=== PATIENT | male | born 1970 | race African-American/Black ===

== ENCOUNTER 2019-12-14 13:17 | Inpatient (IN) | payer OTHER ==
--- NOTE | 2019-12-14 14:00 | BHS.RME ---
Substance Use & Tx History - Substance Use History Alcohol Substance amount: 4 pints vodka Frequency of use: Daily Substance route: Oral Date of Last Use: 12/13/19 Cocaine-Crack Substance amount: $30 Frequency of use: Daily Substance route: Smoking Date of Last Use: 12/13/19 Nicotine Substance amount: 5 packs Frequency of use: Daily Substance route: Smoking Date of Last Use: 12/14/19 Physical/Psych/Mental Status - Behavior General Behavior: Increased activity (restlessness, agitation) Eye Contact: Normal - Cooperativeness Cooperativeness: Cooperative - Thinking Thought Processes: Tight, Logical, Goal Directed - Physical Health Problems Is patient presently having any pain?: No Does patient presently have any injuries (include location): No Does patient currently have a fever: No Is patient : No CIWA Nausea/Vomitin Muscle Tremors: 4-Moderate,w/Arms Extend Anxiety: 4-Mod. Anxious/Guarded Agitation: 2 Paroxysmal Sweats: 1-Minimal Palms Moist Orientation: 0-Oriented Tacttile Disturbances: 0-None Auditory Disturbances: 0-None Visual Disturbances: 0-None Headache: 1-Very Mild CIWA-Ar Total Score: 15
[2019-12-14 16:46] VITALS: BMI 20.3
--- NOTE | 2019-12-14 18:43 | HP ---
<Genoveva Damon - Last Filed: 12/14/19 18:35> CIWA Score Nausea/Vomitin Muscle Tremors: 4-Moderate,w/Arms Extend Anxiety: 4-Mod. Anxious/Guarded Agitation: 2 Paroxysmal Sweats: 1-Minimal Palms Moist Orientation: 0-Oriented Tacttile Disturbances: 0-None Auditory Disturbances: 0-None Visual Disturbances: 0-None Headache: 1-Very Mild CIWA-Ar Total Score: 15 - Admission Criteria OASAS Guidelines: Admission for Medically Managed Detox: Requires at least one of the followin. CIWA greater than 12 2. Seizures within the past 24 hours 3. Delirium tremens within the past 24 hours 4. Hallucinations within the past 24 hours 5. Acute intervention needed for co occurring medical disorder 6. Acute intervention needed for co occurring psychiatric disorder 7. Severe withdrawal that cannot be handled at a lower level of care (continued vomiting, continued diarrhea, abnormal vital signs) requiring intravenous medication and/or fluids 8. Admitting History and Physical - Admission Chief Complaint: "I want detox from alcohol and crack" History of Present Illness: CC: "I want detox from alcohol and crack" HPI: Deejay is a 49 year old with PMH hypertension and schizophrenia, who presents for detox from alcohol and crack. This is his first time in a detox program. Substance Use History Alcohol Substance amount: 4 pints vodka Frequency of use: Daily Substance route: Oral Date of Last Use: 12/13/19 Cocaine-Crack Substance amount: $30 Frequency of use: Daily Substance route: Smoking Date of Last Use: 12/13/19 Nicotine Substance amount: 5 packs Frequency of use: Daily Substance route: Smoking Date of Last Use: 12/14/19 PMH: Hypertension PSH: None Psych: Schizophrenia (Haldol injection once a month, states he received the shot 12/10/19. Social: Homeless Legal: None History Source: Patient Limitations to Obtaining History: No Limitations - Smoking History Smoking history: Current every day smoker - Alcohol/Substance Use Hx Alcohol Use: Yes - Social History Usual Living Arrangement: Yes: Other (homeless) Admission ROS [facility] - HPI Chief Complaint: "I want detox from alcohol and crack" Exam Limitations: No Limitations - Ebola screening Have you traveled outside of the country in the last 21 days: No Have you had contact with anyone from an Ebola affected area: No Have you been sick,other than usual withdrawal symptoms: No Do you have a fever: No - Review of Systems Constitutional: No Symptoms Reported, Unintentional Wgt. Loss EENT: denies: Eye Pain, Ear Pain, Nose Congestion, Dental Problems Respiratory: denies: Cough, Shortness of Breath, Wheezing Cardiac: denies: Chest Pain, Syncope GI: denies: Constipated, Diarrhea, Nausea, Vomiting : reports: No Symptoms Reported Musculoskeletal: denies: Muscle Pain, Muscle Weakness Integumentary: denies: Bruising, Rash Neuro: reports: Unsteady Gait. denies: Headache, Numbness, Tingling Hematology: denies: Blood Clots Psychiatric: reports: Agitated, Anxious Patient History - Smoking Cessation Smoking history: Current every day smoker Initiated information on smoking cessation: Yes 'Breaking Loose' booklet given: 12/14/19 - Substances abused Alcohol Substance route: Oral Frequency: Daily Admission Physical Exam [facility] - Vital Signs Vital Signs: Vital Signs - 24 hr 12/14/19 16:44 Temperature 98.7 F Pulse Rate 83 Respiratory 12 Rate Blood Pressure 125/83 - Physical General Appearance: Yes: Thin, Irritable HEENTM: Yes: Hearing grossly Normal Respiratory: Yes: Within Normal Limits, Lungs Clear, Normal Breath Sounds. No: No Respiratory Distress, No Accessory Muscle Use Breast: Yes: Breast Exam Deferred Cardiology: Yes: Regular Rhythm, Regular Rate, S1, S2 Abdominal: Yes: Non Tender, Flat, Soft Genitourinary: Yes: Within Normal Limits Back: Yes: Normal Inspection Extremities: Yes: Normal Inspection, Normal Range of Motion. No: Tremors Neurological: Yes: Alert Integumentary: Yes: Normal Color, Dry, Warm - Diagnostic (1) Alcohol withdrawal Current Visit: Yes Status: Acute (2) Alcohol use disorder Current Visit: Yes Status: Acute (3) Crack cocaine use Current Visit: Yes Status: Acute (4) Nicotine dependence Current Visit: Yes Status: Chronic Cleared for Admission [facility] - Detox or Rehab [facility] Level of Care: Medically Managed Screened but not Admitted - Documentation of Visit Screened but not Admitted: No Breathalyzer - Breathalyzer Breathalyzer: 0 Urine Drug Screen - Test Device Lot number: [id number] Expiration date: 08/16/21 - Control Is test valid?: Yes - Results Drug screen NEGATIVE: No Urine drug screen results: ARJUN-Cocaine, BAR-Barbiturates Inpatient Rehab Admission - Rehab Decision to Admit Inpatient rehab admission?: No <Jennifer Blue - Last Filed: 12/16/19 16:43> CIWA Score - Admission Criteria OAS Guidelines: Admission for Medically Managed Detox: Requires at least one of the followin. CIWA greater than 12 2. Seizures within the past 24 hours 3. Delirium tremens within the past 24 hours 4. Hallucinations within the past 24 hours 5. Acute intervention needed for co occurring medical disorder 6. Acute intervention needed for co occurring psychiatric disorder 7. Severe withdrawal that cannot be handled at a lower level of care (continued vomiting, continued diarrhea, abnormal vital signs) requiring intravenous medication and/or fluids 8. Admission Physical Exam [facility] - Vital Signs Vital Signs: Vital Signs - 24 hr 12/15/19 12/15/19 12/16/19 17:27 21:00 05:11 Temperature 96.9 F L 97.7 F 97.3 F L Pulse Rate 66 69 56 L Respiratory 18 16 16 Rate Blood Pressure 132/83 136/73 129/75 O2 Sat by Pulse 100 97 98 Oximetry (%) 12/16/19 12/16/19 08:37 12:45 Temperature 99.2 F 97.5 F L Pulse Rate 54 L 60 Respiratory 18 20 Rate Blood Pressure 160/100 155/100 O2 Sat by Pulse 98 99 Oximetry (%)
[2019-12-14] MEDS ORDERED: IBUPROFEN 400 MG TABLET (FP) PO PRN (19:15)
[2019-12-14] MEDS ORDERED: MAGNESIUM CITRATE 300 ML BOTTLE PO PRN (19:15)
[2019-12-14] MEDS ORDERED: MENTHOL/PHENOL 1 EACH UD MM PRN (19:15)
[2019-12-14] MEDS ORDERED: ACETAMINOPHEN 325 MG TABLET (FP) PO PRN ×2 (19:15)
[2019-12-14] MEDS ORDERED: ONDANSETRON *ODT* 4 MG TABLET SL PRN (19:15)
[2019-12-14] MEDS ORDERED: METHOCARBAMOL 500 MG TABLET PO PRN (19:15)
[2019-12-14] MEDS ORDERED: NICOTINE POLACRILEX 2 MG GUM BUC PRN (19:15)
[2019-12-14] MEDS ORDERED: BISMUTH SUBSALICYLATE 524 MG/30 ML UD PO PRN (19:15)
[2019-12-14] MEDS ORDERED: MAG HYDROX/AL HYDROX/SIMETH 30 ML UNIT-DOSE CUP PO PRN (19:15)
[2019-12-14] MEDS ORDERED: MAGNESIUM HYDROX 2400MG/30ML ORAL SUSPENSION 30 ML CUP PO PRN (19:15)
[2019-12-14] MEDS: NICOTINE 14 MG/24 HOURS TOPICAL PATCH TD SCH (20:08)
[2019-12-14] MEDS: diphenhydrAMINE HCL 25 MG CAPSULE (FP) PO SCH (22:24)
[2019-12-14] MEDS: GABAPENTIN 300 MG CAPSULE PO SCH (22:24)
[2019-12-14] MEDS: chlordiazePOXIDE HCL 25 MG CAPSULE PO SCH (22:24)
[2019-12-14] MEDS: THIAMINE HCL 100 MG TABLET (FP) PO SCH (22:24)
[2019-12-14] MEDS: PHENYTOIN NA EXTENDED 100 MG CAPSULE (FP) PO SCH (22:25)
[2019-12-14] MEDS: MELATONIN 5 MG TABLETS PO SCH (22:43)
[2019-12-15] MEDS: GABAPENTIN 300 MG CAPSULE PO SCH ×3 (05:27→22:21)
[2019-12-15] MEDS: chlordiazePOXIDE HCL 25 MG CAPSULE PO SCH ×4 (05:27→22:21)
[2019-12-15] MEDS: PHENYTOIN NA EXTENDED 100 MG CAPSULE (FP) PO SCH ×3 (05:27→22:21)
[2019-12-15] MEDS: diphenhydrAMINE HCL 25 MG CAPSULE (FP) PO SCH ×3 (05:28→22:21)
[2019-12-15] MEDS: PRENATAL VITAMINS W/ FOLIC ACID TABLET (FP) PO SCH (10:26)
[2019-12-15] MEDS: NICOTINE 14 MG/24 HOURS TOPICAL PATCH TD SCH (10:30)
[2019-12-15 11:56] LABS: HEMATOCRIT 36.7 % (35.4-49); MCH 28.4 pg (25.7-33.7); MCHC 32.6 g/dl (32.0-35.9); MEAN PLT VOLUME 10.8 fl (7.5-11.1); PLATELET COUNT 136 K/MM3 (134-434); RBC 4.21 M/mm3 (4.00-5.60); WHITE BLOOD COUNT 4.3 K/mm3 (4.0-10.0)
[2019-12-15 12:09] LABS: ALBUMIN 3.1 g/dl (3.4-5.0); BILIRUBIN,TOTAL 0.3 mg/dL (0.2-1); CALCIUM 8.5 mg/dL (8.5-10.1); CREATININE 1.4 mg/dL (0.55-1.3); POTASSIUM 3.7 mmol/L (3.5-5.1); TOT PROT 6.4 g/dl (6.4-8.2)
--- NOTE | 2019-12-15 13:57 | PN ---
S CIWA - CIWA Score Nausea/Vomitin-Mild Nausea/No Vomiting Muscle Tremors: 2 Anxiety: 2 Agitation: 2 Paroxysmal Sweats: No Perspiration Orientation: 0-Oriented Tacttile Disturbances: 1-Very Mild Itch/Numbness Auditory Disturbances: 0-None Visual Disturbances: 0-None Headache: 2-Mild CIWA-Ar Total Score: 10 S Progress Note (SOAP) Subjective: alert,irritable,anxious,interrupted sleep,tremor,aching pain in the body and b ack Objective: 12/15/19 13:55 Vital Signs Temperature 97.1 F L 12/15/19 05:20 Pulse Rate 52 L 12/15/19 05:20 Respiratory Rate 20 12/15/19 05:20 Blood Pressure 147/78 12/15/19 05:20 O2 Sat by Pulse Oximetry (%) 100 12/15/19 05:20 12/15/19 13:55 Laboratory Last Values WBC 4.3 K/mm3 (4.0-10.0) 12/15/19 08:05 RBC 4.21 M/mm3 (4.00-5.60) 12/15/19 08:05 Hgb 12.0 GM/dL (11.7-16.9) 12/15/19 08:05 Hct 36.7 % (35.4-49) 12/15/19 08:05 MCV 87.0 fl (80-96) 12/15/19 08:05 MCH 28.4 pg (25.7-33.7) 12/15/19 08:05 MCHC 32.6 g/dl (32.0-35.9) 12/15/19 08:05 RDW 15.0 % (11.9-15.9) 12/15/19 08:05 Plt Count 136 K/MM3 (134-434) 12/15/19 08:05 MPV 10.8 fl (7.5-11.1) 12/15/19 08:05 Sodium 146 mmol/L (136-145) H 12/15/19 08:05 Potassium 3.7 mmol/L (3.5-5.1) 12/15/19 08:05 Chloride 116 mmol/L (98-107) H 12/15/19 08:05 Carbon Dioxide 28 mmol/L (21-32) 12/15/19 08:05 Anion Gap 2 MMOL/L (8-16) L 12/15/19 08:05 BUN 14.0 mg/dL (7-18) 12/15/19 08:05 Creatinine 1.4 mg/dL (0.55-1.3) H 12/15/19 08:05 Est GFR (CKD-EPI)AfAm 68.37 12/15/19 08:05 Est GFR (CKD-EPI)NonAf 58.99 12/15/19 08:05 Random Glucose 77 mg/dL (74-106) 12/15/19 08:05 Calcium 8.5 mg/dL (8.5-10.1) 12/15/19 08:05 Total Bilirubin 0.3 mg/dL (0.2-1) 12/15/19 08:05 AST 10 U/L (15-37) L 12/15/19 08:05 ALT 13 U/L (13-61) 12/15/19 08:05 Alkaline Phosphatase 124 U/L (45-117) H 12/15/19 08:05 Total Protein 6.4 g/dl (6.4-8.2) 12/15/19 08:05 Albumin 3.1 g/dl (3.4-5.0) L 12/15/19 08:05 Phenytoin 4.6 12/15/19 08:05 Syphilis Serology Non-reactive (NONREACTIVE) 12/15/19 08:05 Assessment: 12/15/19 13:56 withdrawal symptom Plan: continue detox,encourage oral fluid,creatinine 1.4,dilantin 4.6,encourage oral fluid,hydration,repeat creatinine,dilantin level in am,dilantin 300 mgs po now and continue 100 mgs po tid
[2019-12-15] MEDS: chlordiazePOXIDE HCL 25 MG CAPSULE PO PRN (13:58)
[2019-12-15] MEDS ORDERED: PHENYTOIN NA EXTENDED 100 MG CAPSULE (FP) PO ONE (14:00)
--- NOTE | 2019-12-15 14:56 | EKG ---
Test Reason : Blood Pressure : / mmHG Vent. Rate : 060 BPM Atrial Rate : 060 BPM P-R Int : 178 ms QRS Dur : 090 ms QT Int : 464 ms P-R-T Axes : 069 063 068 degrees QTc Int : 464 ms NORMAL SINUS RHYTHM NORMAL ECG NO PREVIOUS ECGS AVAILABLE Confirmed by MICHELLE FERGUSON, CURRY ([id number]) on 12/15/2019 2:56:31 PM Referred By: Confirmed By:CURRY MARTINEZ MD
[2019-12-15] MEDS: THIAMINE HCL 100 MG TABLET (FP) PO SCH (22:21)
[2019-12-15] MEDS: MELATONIN 5 MG TABLETS PO SCH (22:22)
[2019-12-16] MEDS: PHENYTOIN NA EXTENDED 100 MG CAPSULE (FP) PO SCH ×3 (05:56→22:19)
[2019-12-16] MEDS: GABAPENTIN 300 MG CAPSULE PO SCH ×3 (05:56→22:19)
[2019-12-16] MEDS: chlordiazePOXIDE HCL 25 MG CAPSULE PO SCH ×4 (05:56→22:20)
[2019-12-16] MEDS: diphenhydrAMINE HCL 25 MG CAPSULE (FP) PO SCH ×3 (06:10→22:19)
[2019-12-16] MEDS ORDERED: cloNIDine HCL 0.1 MG TABLET PO ONE ×2 (09:09→13:30)
[2019-12-16] MEDS: NICOTINE 14 MG/24 HOURS TOPICAL PATCH TD SCH (10:27)
[2019-12-16] MEDS: amLODIPine BESYLATE 5 MG TABLET (FP) PO SCH (10:27)
[2019-12-16] MEDS: chlordiazePOXIDE HCL 25 MG CAPSULE PO PRN (10:27)
[2019-12-16] MEDS: PRENATAL VITAMINS W/ FOLIC ACID TABLET (FP) PO SCH (10:27)
[2019-12-16 11:25] LABS: CREATININE 1.4 mg/dL (0.55-1.3)
--- NOTE | 2019-12-16 12:44 | PN ---
S CIWA - CIWA Score Nausea/Vomitin-No Nausea/No Vomiting Muscle Tremors: 1-None Visible, but [place] Anxiety: 1-Mildly Anxious Agitation: 1-Slight > Activity Paroxysmal Sweats: No Perspiration Orientation: 0-Oriented Tacttile Disturbances: 1-Very Mild Itch/Numbness Auditory Disturbances: 0-None Visual Disturbances: 0-None Headache: 1-Very Mild CIWA-Ar Total Score: 5 [facility] Progress Note (SOAP) Subjective: alert,irritable,anxious,feel weak,interrupted sleep,history of hypertension,not on medication now for hypertension Objective: 12/16/19 12:41 Vital Signs Temperature 99.2 F 12/16/19 08:37 Pulse Rate 54 L 12/16/19 08:37 Respiratory Rate 18 12/16/19 08:37 Blood Pressure 160/100 12/16/19 08:37 O2 Sat by Pulse Oximetry (%) 98 12/16/19 08:37 Laboratory Results - last 24 hr 12/14/19 12/16/19 12/16/19 19:00 07:30 07:30 Creatinine 1.4 H Est GFR (CKD-EPI)AfAm 68.37 Est GFR (CKD-EPI)NonAf 58.99 Phenytoin 5.3 COVID-19 (ESTELITA) Not detected Assessment: 12/16/19 12:42 withdrawal symptom Plan: continue detox librium regimen,encourage oral fluid,clonidine 0.1 mg po now then amlodipine 5 mgs po daily, continue dilantin 100 mgs po tid,wheelchair as necessary,close monitorin,fall recaution,seizure precaution close monitoring
[2019-12-16] MEDS: THIAMINE HCL 100 MG TABLET (FP) PO SCH (22:19)
[2019-12-16] MEDS: MELATONIN 5 MG TABLETS PO SCH (22:20)
[2019-12-17] MEDS ORDERED: chlordiazePOXIDE HCL 10 MG CAPSULE PO PRN
[2019-12-17 06:23] VITALS: BP 151/94
[2019-12-17] MEDS: diphenhydrAMINE HCL 25 MG CAPSULE (FP) PO SCH (06:29)
[2019-12-17] MEDS: GABAPENTIN 300 MG CAPSULE PO SCH (06:29)
[2019-12-17] MEDS: PHENYTOIN NA EXTENDED 100 MG CAPSULE (FP) PO SCH (06:29)
[2019-12-17] MEDS: chlordiazePOXIDE HCL 10 MG CAPSULE PO SCH ×2 (06:30→12:06)
[2019-12-17] MEDS: NICOTINE 14 MG/24 HOURS TOPICAL PATCH TD SCH (09:34)
[2019-12-17] MEDS: PRENATAL VITAMINS W/ FOLIC ACID TABLET (FP) PO SCH (09:34)
[2019-12-17] MEDS: amLODIPine BESYLATE 5 MG TABLET (FP) PO SCH (09:34)
[2019-12-17 10:42] VITALS: PULSE 62; TEMP 96.9
--- NOTE | 2019-12-17 14:02 | DS ---
[facility] Detox Discharge Summary Admission Date: 12/14/19 Discharge Date: 12/17/19 (left AMA) - History Present History: Alcohol Dependence, Cocaine Dependence Additional Comments: Seen earlier during round, alert and oriented x3, in no acute respiratory dist ress. Full ROM, ambulating in hallway with cane. Skin warm to touch with no lesions noted. Withdrawal symptoms. Requested to leave and refused to wait for me to talk to him. Pertinent Past History: History of Hypertension, alcohol, Cocaine?crack and nicotine use disorder. - Physical Exam Results Vital Signs: Vital Signs Temperature 96.9 F L 12/17/19 09:02 Pulse Rate 62 12/17/19 09:02 Respiratory Rate 18 12/17/19 09:02 Blood Pressure 151/94 12/17/19 05:52 O2 Sat by Pulse Oximetry (%) 99 12/17/19 09:02 Vital Signs 12/17/19 09:02 Temperature 96.9 F L Pulse Rate 62 Respiratory 18 Rate O2 Sat by Pulse 99 Oximetry (%) Laboratory Last Values WBC 4.3 K/mm3 (4.0-10.0) 12/15/19 08:05 RBC 4.21 M/mm3 (4.00-5.60) 12/15/19 08:05 Hgb 12.0 GM/dL (11.7-16.9) 12/15/19 08:05 Hct 36.7 % (35.4-49) 12/15/19 08:05 MCV 87.0 fl (80-96) 12/15/19 08:05 MCH 28.4 pg (25.7-33.7) 12/15/19 08:05 MCHC 32.6 g/dl (32.0-35.9) 12/15/19 08:05 RDW 15.0 % (11.9-15.9) 12/15/19 08:05 Plt Count 136 K/MM3 (134-434) 12/15/19 08:05 MPV 10.8 fl (7.5-11.1) 12/15/19 08:05 Sodium 146 mmol/L (136-145) H 12/15/19 08:05 Potassium 3.7 mmol/L (3.5-5.1) 12/15/19 08:05 Chloride 116 mmol/L (98-107) H 12/15/19 08:05 Carbon Dioxide 28 mmol/L (21-32) 12/15/19 08:05 Anion Gap 2 MMOL/L (8-16) L 12/15/19 08:05 BUN 14.0 mg/dL (7-18) 12/15/19 08:05 Creatinine 1.4 mg/dL (0.55-1.3) H 12/16/19 07:30 Est GFR (CKD-EPI)AfAm 68.37 12/16/19 07:30 Est GFR (CKD-EPI)NonAf 58.99 12/16/19 07:30 Random Glucose 77 mg/dL (74-106) 12/15/19 08:05 Calcium 8.5 mg/dL (8.5-10.1) 12/15/19 08:05 Total Bilirubin 0.3 mg/dL (0.2-1) 12/15/19 08:05 AST 10 U/L (15-37) L 12/15/19 08:05 ALT 13 U/L (13-61) 12/15/19 08:05 Alkaline Phosphatase 124 U/L (45-117) H 12/15/19 08:05 Total Protein 6.4 g/dl (6.4-8.2) 12/15/19 08:05 Albumin 3.1 g/dl (3.4-5.0) L 12/15/19 08:05 Phenytoin 5.3 12/16/19 07:30 Syphilis Serology Non-reactive (NONREACTIVE) 12/15/19 08:05 COVID-19 ([facility]ELITA) Not detected (Not Detected) 12/14/19 19:00 LABS NOTED. Pertinent Admission Physical Exam Findings: WITHDRAWAL SYMPTOMS. - Medication Discharge Medications: Ambulatory Orders Benztropine Mesylate 2 mg PO BID 12/14/19 Diphenhydramine HCl [Benadryl Capsule -] 25 mg PO TID 12/14/19 Gabapentin [Neurontin -] 300 mg PO Q8H 12/14/19 Haloperidol [Haldol -] 10 mg PO DAILY 12/14/19 Phenytoin Sodium Extended 100 mg PO TID 12/14/19 - Diagnosis (1) Alcohol withdrawal Status: Acute (2) Crack cocaine use Status: Chronic (3) Nicotine dependence Status: Chronic - AMA Did Patient Leave Against Medical Advice: Yes [facility] CIWA - CIWA Score Nausea/Vomitin-No Nausea/No Vomiting Muscle Tremors: 2 Anxiety: 2 Agitation: 1-Slight > Activity Paroxysmal Sweats: 2 Orientation: 0-Oriented Tacttile Disturbances: 0-None Auditory Disturbances: 1-Very Mild Visual Disturbances: 0-None Headache: 0-None Present CIWA-Ar Total Score: 8
[2019-12-18] MEDS ORDERED: chlordiazePOXIDE HCL 10 MG CAPSULE PO SCH (05:00)
[2019-12-19] MEDS ORDERED: chlordiazePOXIDE HCL 10 MG CAPSULE PO ONE (05:00)
== END 2019-12-17 12:20 | disposition left against medical advice (07) | DRG 770 ==
LOC: YASAS 13:17 → Y6N 19:18
PROVIDERS: ADMIT Allergy & Immunology; ATTEND Allergy & Immunology
PROC: HZ2ZZZZ Detoxification Services for Substance Abuse Treatment (ICD-10-PCS; principal; 2019-12-14)
DX: F10.230 Alcohol dependence with withdrawal, uncomplicated (principal); F14.20 Cocaine dependence, uncomplicated; F17.210 Nicotine dependence, cigarettes, uncomplicated
CPT/HCPCS: 36415; 80053; 80185; 82565; 85027; 86780; 93005; 93010; J0735; U0003

== ENCOUNTER 2024-05-30 14:59 | Inpatient (IN) | payer OTHER ==
[2024-05-30] MEDS ORDERED: ACETAMINOPHEN 325 MG TABLET (FP) PO PRN (15:35)
[2024-05-30] MEDS ORDERED: LOPERAMIDE HCL 2 MG CAPSULE PO PRN (15:35)
[2024-05-30] MEDS ORDERED: BENZOCAINE/MENTHOL (CHLORASEPTIC ) LOZENGE MM PRN (15:35)
[2024-05-30] MEDS ORDERED: NALOXONE (NARCAN) HCL 4 MG/0.1 ML SPRAY NS PRN (15:35)
[2024-05-30] MEDS ORDERED: NICOTINE POLACRILEX 2 MG GUM BUC PRN (15:35)
[2024-05-30] MEDS ORDERED: IBUPROFEN 400 MG TABLET (FP) PO PRN (15:35)
[2024-05-30] MEDS ORDERED: POLYETHYLENE GLYCOL (HEALTHYLAX) 3350 17 GM PACKET PO PRN (15:35)
[2024-05-30] MEDS ORDERED: BENZONATATE 200 MG CAPSULE PO PRN (15:35)
[2024-05-30] MEDS ORDERED: guaiFENesin 600 MG TABLET.ER (FP) PO PRN (15:35)
[2024-05-30] MEDS ORDERED: IBUPROFEN 600 MG TABLET (FP) PO PRN (15:35)
[2024-05-30 15:51] VITALS: BMI 21.9
[2024-05-30] MEDS: TUBERCULIN PPD 5 TU/0.1ML SYRINGE (IN PATIENT USE ONLY) ID ONE (19:41)
[2024-05-30] MEDS: hydrOXYzine PAMOATE 25 MG CAPSULE (FP) PO PRN (19:41)
[2024-05-30] MEDS: cloNIDine HCL 0.1 MG TABLET PO PRN (19:41)
[2024-05-30] MEDS: MELATONIN 5 MG TABLETS PO SCH (21:44)
[2024-05-30] MEDS: THIAMINE 100 MG TABLET PO SCH (21:44)
[2024-05-30] MEDS: PHENYTOIN NA EXTENDED 100 MG CAPSULE (FP) PO SCH (21:44)
[2024-05-30] MEDS: amLODIPine BESYLATE 5 MG TABLET (FP) PO ONE (23:01)
[2024-05-31] MEDS: NICOTINE 14 MG/24 HOURS TOPICAL PATCH TD SCH (09:23)
[2024-05-31] MEDS: PRENATAL VITAMINS W/ FOLIC ACID TABLET (FP) PO SCH (09:23)
[2024-05-31] MEDS: MAG HYDROX/AL HYDROX/SIMETH 30 ML UNIT-DOSE CUP PO PRN (09:51)
[2024-05-31 12:26] LABS: HEMOGLOBIN 10.1 GM/dL (11.7-16.9); MCH 26.9 pg (25.7-33.7); MCHC 31.7 g/dl (32.0-35.9); MEAN CELL VOLUME 84.7 fl (80-96); MEAN PLT VOLUME 9.5 fl (7.5-11.1); PLATELET COUNT 205 10^3/uL (134-434); RBC 3.78 M/mm3 (4.00-5.60); RDW 16.6 % (11.9-15.9)
[2024-05-31 13:12] LABS: POTASSIUM 3.7 mmol/L (3.5-5.1)
[2024-05-31 13:25] LABS: BLOOD UREA NITROGEN 16.7 mg/dL (7-18)
[2024-05-31 13:26] LABS: CALCIUM 9.6 mg/dL (8.5-10.1)
[2024-05-31 13:27] LABS: ALBUMIN 3.4 g/dl (3.4-5.0)
[2024-05-31 13:30] LABS: CREATININE 1.4 mg/dL (0.55-1.3)
[2024-05-31 13:31] LABS: BILIRUBIN,TOTAL 0.2 mg/dL (0.2-1); TOT PROT 6.8 g/dl (6.4-8.2)
[2024-05-31 20:52] LABS: URINE APPEARANCE CLEAR; URINE BILIRUBIN NEGATIVE (NEGATIVE); URINE COLOR YELLOW; URINE GLUCOSE (UA) NEGATIVE (NEGATIVE); URINE KETONE NEGATIVE (NEGATIVE); URINE LEUK ESTERASE NEGATIVE (NEGATIVE); URINE NITRITE NEGATIVE (NEGATIVE); URINE PROTEIN NEGATIVE (NEGATIVE); URINE UROBILINOGEN 0.2 mg/dL (0.2-1.0)
[2024-05-31] MEDS: HALOPERIDOL 1 MG TABLET PO SCH (21:36)
[2024-05-31] MEDS: BENZTROPINE MESYLATE 0.5 MG TABLET (FP) PO SCH (21:36)
[2024-06-01] MEDS: MAGNESIUM HYDROX 2400MG/30ML ORAL SUSPENSION 30 ML CUP PO PRN (06:09)
[2024-06-01] MEDS: amLODIPine BESYLATE 5 MG TABLET (FP) PO SCH (12:13)
[2024-06-01] MEDS: LORazepam 0.5 MG TABLET PO ONE (15:08)
[2024-06-01] MEDS: ATORVASTATIN CA 40 MG TABLET (FP) PO SCH (21:09)
[2024-06-01] MEDS: clonazePAM 0.5 MG ODT TABLETS SL SCH (21:09)
[2024-06-01] MEDS: GABAPENTIN 300 MG CAPSULE PO SCH (21:10)
[2024-06-01] MEDS: cloNIDine HCL 0.1 MG TABLET PO SCH (21:11)
[2024-06-01] MEDS: QUEtiapine FUMARATE 50 MG TABLET PO SCH (21:11)
[2024-06-01] MEDS ORDERED: BENZTROPINE MESYLATE 1 MG TABLET PO SCH (22:00)
[2024-06-01] MEDS ORDERED: HALOPERIDOL 5 MG TABLET PO SCH (22:00)
[2024-06-01] MEDS ORDERED: LORazepam 0.5 MG TABLET PO SCH (22:00)
[2024-06-01] MEDS ORDERED: HALOPERIDOL 2 MG TABLET PO SCH (22:00)
[2024-06-02 06:11] VITALS: BP 142/79; PULSE 79; RESP 18; TEMP 97.7
[2024-06-02 09:18] LABS: INR 0.86 (0.83-1.09); PROTHROMBIN TIME (PATIENT) 9.9 SEC (9.7-13.0)
[2024-06-02 10:02] LABS: MAGNESIUM 2.3 mg/dL (1.8-2.4)
[2024-06-02 10:05] LABS: PHOSPHOROUS 2.5 mg/dL (2.5-4.9)
[2024-06-02] MEDS: amLODIPine BESYLATE 5 MG TABLET (FP) PO SCH (10:55)
[2024-06-02] MEDS: ASPIRIN COATED 81 MG TABLET.EC PO SCH (10:55)
[2024-06-02] MEDS: NALOXONE (NYS OPIOID OVERDOSE PROGRAM) 4 MG/0.1 ML SPRAY NS SCH (11:06)
== END 2024-06-02 11:45 | disposition home or self-care (01) | DRG 772 ==
LOC: YASAS 14:59 → Y3NR 17:40 → Y3W 06-01 09:21
PROVIDERS: ADMIT Allergy & Immunology; ATTEND Psychiatry & Neurology Pain Medicine
PROC: HZ42ZZZ Group Counseling for Substance Abuse Treatment, Cognitive-Behavioral (ICD-10-PCS; principal; 2024-05-30)
DX: F10.20 Alcohol dependence, uncomplicated (principal); F14.20 Cocaine dependence, uncomplicated; F17.210 Nicotine dependence, cigarettes, uncomplicated; F31.9 Bipolar disorder, unspecified; F20.9 Schizophrenia, unspecified; D64.9 Anemia, unspecified; I10 Essential (primary) hypertension; R56.1 Post traumatic seizures; Z87.820 Personal history of traumatic brain injury
CPT/HCPCS: 0241U-QW; 36415; 80053; 80061; 80185; 80305; 80307; 81003; 82140; 82652; 83036; 83735; 84100; 85027; 85610; 86780; 86803; 87811; 93005; 93010